=== PATIENT | female | born 1965 | race African-American/Black ===

== ENCOUNTER 2019-03-29 16:40 | Emergency (ER) | payer OTHER ==
[~2019-03-29] VITALS: Ht 160 cm; Wt 127.5 kg
[2019-03-29 16:50] VITALS: Ht 160 cm; Wt 127.5 kg
[2019-03-29 17:45] LABS: BASOPHIL % 0.4 % (0-2); PLATELET COUNT 211 x10^3mcL (130-400); RED CELL DISTRIBUTION WIDTH 12.5 % (11.5-14.5)
[2019-03-29 18:07] LABS: FREE T4 0.98 ng/dL (0.76-1.46); FREE THYROXINE INDEX 1.7 ug/dL (1.4-4.5); T4(THYROXINE) 5.1 ug/dL (4.7-13.3)
[2019-03-29 18:18] LABS: CALCIUM 8.8 mg/dL (8.5-10.1); CARBON DIOXIDE 25.7 mmol/L (21-32); CHLORIDE SERUM 107 mmol/L (98-107); CREATININE SERUM 0.8 mg/dL (0.6-1.0); GFR1 > 60 mL/min; GLUCOSE SERUM 108 mg/dL (74-106); POTASSIUM SERUM 3.6 mmol/L (3.5-5.1); SODIUM SERUM 143 mmol/L (136-145); T3 TOTAL 0.96 ng/mL
[2019-03-29 18:22] LABS: ALBUMIN 3.5 g/dL (3.4-5.0); ALKALINE PHOSPHATASE 85 U/L (46-116); ALT/SGPT 17 U/L (14-59); AST/SGOT 6 U/L (15-37); BILIRUBIN TOTAL 0.44 mg/dL (0.20-1.00); CHOLESTEROL 204 mg/dL (<200); CHOLESTEROL/HDL RATIO 5.2; HDL CHOLESTEROL 39 mg/dL (40-60); LIPASE 46 IU/L (73-393); TRIGLYCERIDES 92 mg/dL (<150)
[2019-03-29 20:04] LABS: microscopic required? NO
[2019-03-29 20:11] LABS: urine erythrocyte NEGATIVE (NEGATIVE)
[2019-03-29 21:08] VITALS: BP 143/62
== END 2019-03-29 21:08 | disposition home or self-care (01) ==
LOC: ED 16:40
PROVIDERS: Specialist
DX: R07.89 Other chest pain (principal); E66.9 Obesity, unspecified; E78.00 Pure hypercholesterolemia, unspecified
CPT/HCPCS: 36415; 83880; 84439; J7030; Q0092